=== PATIENT | female | born 1965 | race Caucasian/White ===

== ENCOUNTER 2016-10-09 00:45 | Emergency (ER) | payer OTHER ==
[~2016-10-09] VITALS: Wt 65.0 kg
[~2016-10-09 00:45] MED LIST: ATEN50TA PO; CLON2TAB3 PO; FAMO40TA52 PO; FLUO10CA17 PO; GABA300C16 PO; HYDR-906 PO; IBUP400T22 PO; LORA1TAB PO; NAPR-260 PO; OMEP20CA16 PO; TOPI50TA5 PO; TRAM50TA2 PO
[2016-10-09 00:50] VITALS: Wt 65.0 kg
[2016-10-09] MEDS ORDERED: LORAZEPAM 2 MG INJ IV ONE (03:30)
[2016-10-09 03:52] LABS: ADD SCAN DIFF NO
[2016-10-09 04:00] LABS: BASOPHILS % 0.5 % (0.0-2.0); EOSINOPHILS # 0.1 10^3/ul (0.0-0.5); EOSINOPHILS % 1.7 % (0.0-7.0); HEMOGLOBIN 12.2 g/dl (12.0-16.0); LYMPHOCYTES # 1.1 10^3/ul (0.8-2.9); LYMPHOCYTES % 19.2 % (15.0-51.0); MEAN CORPUSCULAR HEMOGLOBIN 29.9 pg (29.0-33.0); MEAN CORPUSCULAR VOLUME 90.7 fl (82.0-101.0); MEAN PLATELET VOLUME 11.1 fl (7.4-10.4); MONOCYTE # 0.4 10^3/ul (0.3-0.9); MONOCYTES % 7.5 % (0.0-11.0); NEUTROPHIL # 4.1 10^3/ul (1.6-7.5); NEUTROPHILS % 70.9 % (39.0-77.0); PLATELET COUNT 243 10^3/UL (140-415); RED BLOOD COUNT 4.08 10^6/ul (4.20-5.40); RED CELL DISTRIBUTION WIDTH 13.8 % (11.5-14.5); WHITE BLOOD COUNT 5.7 10^3/ul (4.8-10.8)
[2016-10-09 04:05] LABS: INR 0.92; PROTIME 12.4 Sec (12.2-14.2)
[2016-10-09 04:09] LABS: ALBUMIN 4.6 g/dl (3.3-4.9); CHLORIDE 106 mmol/L (97-110); POTASSIUM 3.8 mmol/L (3.5-5.1); SODIUM 147 mmol/L (135-144)
--- NOTE | 2016-10-09 04:09 | RADRPT ---
PROCEDURE: CT Brain without contrast. CLINICAL INDICATION: Weakness TECHNIQUE: Axial images from the skull base through the vertex without IV contrast. Multiplanar r eformatted images were made. Images were reviewed on a PACS workstation. The CTDIvol is 44.58 mGy and the DLP is 720.23 mGycm. One or more of the following dose reduction techniques were used: auto mated exposure control, adjustment of the mA and/or kV according to patient size, or use of iterativ e reconstruction technique. COMPARISON: 05/16/2016 FINDINGS: Again seen are changes from prior right frontal craniotomy and artifact from aneurysm clip in the ri ght suprasellar region is again seen. Area of encephalomalacia in the right parietal lobe and mild dilatation of the right lateral ventricle are stable findings. Right cerebellar encephalomalacia is again seen. Areas of encephalomalacia in the right frontal and temporal lobes are unchanged. Ther e is no definite evidence for acute territorial infarction or intracranial hemorrhage. No mass or m idline shift is seen. No extraaxial fluid collection is seen. The visualized paranasal sinuses and mastoids are clear. IMPRESSION:. Stable changes from prior right frontal craniotomy and aneurysm clipping with areas of old encephalomalacia in the right cerebral hemisphere and cerebellum. No definite acute intracranial abnormality. RPTAT: [facility] Physician Kaylen Date Time Electronically viewed and signed by Physician Kaylen on 10/09/2016 04:09 LE/
[2016-10-09 04:11] LABS: CREATININE 0.67 mg/dl (0.44-1.00); PARTIAL THROMBOPLASTIN TIME 29.3 Sec (25.0-35.0)
[2016-10-09 04:12] LABS: ALANINE AMINOTRANSFERASE 16 IU/L (13-69); ALBUMIN/GLOBULIN RATIO 1.53; ALKALINE PHOSPHATASE 70 IU/L (42-121); ANION GAP 17 (8-16); ASPARTATE AMINO TRANSFERASE 16 IU/L (15-46); BILIRUBIN,INDIRECT 0.1 mg/dl (0-1.1); BILIRUBIN,TOTAL 0.1 mg/dl (0.2-1.3); BLOOD UREA NITROGEN 16 mg/dl (7-20); CALCIUM 9.3 mg/dl (8.4-10.2); CARBON DIOXIDE 28 mmol/L (21-31); GLUCOSE 104 mg/dl (70-220); TOTAL PROTEIN 7.6 g/dl (6.1-8.1)
[2016-10-09 04:20] LABS: B-TYPE NATRIURETIC PEPTIDE 39 PG/ML (0-125)
--- NOTE | 2016-10-09 04:21 | RADRPT ---
PROCEDURE: XR Chest. CLINICAL INDICATION: Chest Pain. TECHNIQUE: Portable single view of the chest COMPARISON: 09/30/2015 FINDINGS: The heart size is again top normal or minimally enlarged. No definite acute infiltrate, pleural eff usion, or overt congestive heart failure is seen. No bony abnormality is seen. Calcified granuloma s of the left lower lobe again seen. IMPRESSION: No significant interval change. Prior granulomatous disease. No definite acute disease. Possible m ild cardiomegaly. RPTAT: [facility] Amberly Clark Physician Date Time Electronically viewed and signed by Amberly Clark, Physician on 10/09/2016 04:21 LE/
[2016-10-09 04:28] LABS: TROPONIN-I < 0.012 ng/ml (0.00-0.12)
--- NOTE | 2016-10-09 04:28 | ERD ---
ER Documentation Chief Complaint Date/Time DATE: 10/09/16 TIME: 04:24 Chief Complaint anxiety, begum, dizzy, fell from feeling weak, no ko HPI This is a 51-year-old female complains of anxiety and headache. Denies any fevers or chills. Denies any other current complaints. Patient feels very weak because of her anxiety. She is requesting anxiety medication. ROS All systems reviewed and are negative except as per history of present illness. Medications Home Meds Active Scripts Ibuprofen* (Motrin*) 400 Mg Tab, 400 MG PO Q6H Y for PAIN AND OR ELEVATED TEMP, #30 TAB Prov:DENISSE WILLETT [employer] 06/14/16 Hydrocodone/Acetaminophen ([place] 5-325 Tablet) 1 Each Tablet, 1 TAB PO Q6H Y for SEVERE PAIN LEVEL 7-10, #20 TAB Prov:DENISSE WILLETT NP 06/14/16 Naproxen* (Naprosyn*) 500 Mg Tablet, 500 MG PO BID Y for PAIN AND/OR INFLAMMATION, #30 TAB Prov:LYNDON BYERS MD 05/12/16 Lorazepam* (Lorazepam*) 1 Mg Tablet, 1 MG PO Q8, #5 TAB Prov:DENISSE WILLETT NP 11/25/15 Famotidine* (Famotidine*) 40 Mg Tablet, 40 MG PO DAILY, #30 TAB Prov:LYNDON BYERS MD 09/30/15 Reported Medications Clonazepam* (Clonazepam*) 2 Mg Tablet, 2 MG PO DAILY, TAB 09/30/15 Fluoxetine Hcl* (Fluoxetine Hcl*) 10 Mg Capsule, 10 MG PO DAILY, CAP 09/30/15 Atenolol* (Atenolol*) 50 Mg Tablet, 50 MG PO DAILY, #30 TAB 09/30/15 Omeprazole* (Omeprazole*) 20 Mg Capsule.dr, 20 MG PO DAILY, #30 CAP 09/30/15 Gabapentin* (Gabapentin*) 300 Mg Capsule, 300 MG PO BID, #60 CAP 09/30/15 Topiramate* (Topiramate*) 50 Mg Tablet, 50 MG PO DAILY, TAB 09/16/14 Tramadol HCl (Tramadol HCl) 50 Mg Tab, 50 MG PO BID Y for PAIN, TAB 09/16/14 Allergies Allergies: Coded Allergies: No Known Allergy (Unverified , 06/14/16) PMhx/Soc History of Surgery: Yes (cranial surgery for aneurysm repair) Anesthesia Reaction: No Hx Neurological Disorder: No Hx Respiratory Disorders: Yes (asthma) Hx Psychiatric Problems: No Hx Miscellaneous Medical Probl: Yes (hypothyroid pretension) Hx Alcohol Use: No Hx Substance Use: No Hx Tobacco Use: No Smoking Status: Never smoker Physical Exam Vitals Vital Signs Date Time Temp Pulse Resp B/P Pulse Ox O2 Delivery O2 Flow Rate FiO2 10/09/16 00:50 98.6 69 20 116/73 100 Physical Exam Const: [] Head: Atraumatic Eyes: Normal Conjunctiva ENT: Normal External Ears, Nose and Mouth. Neck: Full range of motion..~ No meningismus. Resp: Clear to auscultation bilaterally Cardio: Regular rate and rhythm, no murmurs Abd: Soft, non tender, non distended. Normal bowel sounds Skin: No petechiae or rashes Back: No midline or flank tenderness Ext: No cyanosis, or edema Neur: Awake and alert Psych: Normal Mood and Affect Result Diagram: 10/09/16 03310/09/16 0330 Results 24 hrs Laboratory Tests Test 10/09/16 03:30 Activated Partial Thromboplast Time 29.3Sec Alanine Aminotransferase (ALT/SGPT) 16IU/L Albumin 4.6g/dl Albumin/Globulin Ratio 1.53 Alkaline Phosphatase 70IU/L Anion Gap 17 Aspartate Amino Transf (AST/SGOT) 16IU/L B-Type Natriuretic Peptide 39PG/ML Basophils # 0.010^3/ul Basophils % 0.5% Blood Urea Nitrogen 16mg/dl Calcium Level 9.3mg/dl Carbon Dioxide Level 28mmol/L Chloride Level 106mmol/L Creatinine 0.67mg/dl Direct Bilirubin 0.00mg/dl Eosinophils # 0.110^3/ul Eosinophils % 1.7% Globulin 3.00g/dl Glucose Level 104mg/dl Hematocrit 37.0% Hemoglobin 12.2g/dl INR International Normalized Ratio 0.92 Indirect Bilirubin 0.1mg/dl Lymphocytes # 1.110^3/ul Lymphocytes % 19.2% Mean Corpuscular Hemoglobin 29.9pg Mean Corpuscular Hemoglobin Concent 33.0g/dl Mean Corpuscular Volume 90.7fl Mean Platelet Volume 11.1fl Monocytes # 0.410^3/ul Monocytes % 7.5% Neutrophils # 4.110^3/ul Neutrophils % 70.9% Nucleated Red Blood Cells # 0.010^3/ul Nucleated Red Blood Cells % 0.0/100WBC Platelet Count 36228^3/UL Potassium Level 3.8mmol/L Prothrombin Time 12.4Sec Prothrombin Time Ratio 1.0 Red Blood Count 4.0810^6/ul Red Cell Distribution Width 13.8% Sodium Level 147mmol/L Total Bilirubin 0.1mg/dl Total Protein 7.6g/dl Troponin I Pending White Blood Count 5.710^3/ul Current Medications Medications (Trade) Dose Ordered Sig/Larry Route PRN Reason Start Time Stop Time Status Last Admin Dose Admin Lorazepam (Ativan) 1 mg ONCE ONCE IV 10/09/16 03:30 10/09/16 03:31 DC 10/09/16 03:37 Procedures/MDM EKG: Rate/Rhythm: [Normal Sinus Rhythm] QRS, ST, T-waves: [No changes consistent w/ acute ischemia] Impression: [No evidence of ischemia or arrhythmia] Chest X-ray 1V Interpreted by me: Soft Tissue: No acute abnormalities Bones: No acute abnormalities Mediastinum/Cardiac Silhouette/Lungs: [No acute abnormalities] CT of the head is negative for any acute pathology Medical decision-making: This is a 51-year-old female comes in with symptomology consistent with anxiety. At this point is clinically stable. She will be discharged home. Return for worsening symptoms. Departure Diagnosis: Primary Impression: Anxiety attack Condition: Stable KRYSTYNA BOOTH Oct 09, 2016 04:28
[2016-10-09] MEDS ORDERED: LORA1TAB PO (04:34)
[2016-10-09 05:09] VITALS: BP 108/76; PULSE 88; RESP 20; TEMP 98.6
== END 2016-10-09 05:09 | disposition home or self-care (01) ==
LOC: E/R 00:45
DX: F41.9 Anxiety disorder, unspecified (principal); J45.909 Unspecified asthma, uncomplicated; E03.9 Hypothyroidism, unspecified; R07.9 Chest pain, unspecified; R51 Headache; I10 Essential (primary) hypertension
CPT/HCPCS: 36415; 70450; 71010; 80053; 83880; 84484; 85025; 85610; 85730; 93005; 96374; J2060; Z7502

== ENCOUNTER 2016-10-31 02:39 | Emergency (ER) | payer OTHER ==
[~2016-10-31] VITALS: Ht 152.4 cm; Wt 64.5 kg
[2016-10-31 02:43] VITALS: Ht 152.4 cm; Wt 64.5 kg
[2016-10-31] MEDS ORDERED: IBUPROFEN 600 MG TAB PO ONE (06:30)
[2016-10-31] MEDS ORDERED: LORAZEPAM 2 MG INJ IV ONE (07:00)
[2016-10-31] MEDS ORDERED: LORAZEPAM 2 MG INJ IM ONE (07:00)
--- NOTE | 2016-10-31 07:11 | RADRPT ---
PROCEDURE: Chest. CLINICAL INDICATION: Chest pain. TECHNIQUE: Single frontal view of the chest was obtained. COMPARISON: 10/09/2016. FINDINGS: The cardiac silhouette is magnified. The aortic arch is unremarkable. There is no focal consolidat ion, vascular congestion or pleural effusion. There is no pneumothorax. IMPRESSION: No evidence for active cardiopulmonary disease. .Shon Bennett MD, MD Date Time Electronically viewed and signed by .Shon Bennett MD, on 10/31/2016 07:11 .T/
[2016-10-31 07:25] LABS: ADD SCAN DIFF NO
[2016-10-31 07:43] LABS: ALBUMIN 4.5 g/dl (3.3-4.9); ALBUMIN/GLOBULIN RATIO 1.5; BILIRUBIN,INDIRECT 0.4 mg/dl (0-1.1); BILIRUBIN,TOTAL 0.4 mg/dl (0.2-1.3); CALCIUM 9.3 mg/dl (8.4-10.2); CREATININE 0.54 mg/dl (0.44-1.00); POTASSIUM 3.8 mmol/L (3.5-5.1); TOTAL PROTEIN 7.5 g/dl (6.1-8.1)
--- NOTE | 2016-10-31 07:43 | RADRPT ---
PROCEDURE: US Abdomen (right upper quadrant). CLINICAL INDICATION: Abdominal pain. TECHNIQUE: Multiple real-time longitudinal and transverse images of the right upper quadrant of th e abdomen were acquired utilizing a curved array transducer. Images were reviewed on a high-resoluti on PACS workstation. COMPARISON: None FINDINGS: The liver is normal in size and demonstrates normal echogenicity. No focal intrahepatic mass is id entified. The gallbladder is normal in appearance. There is no pericholecystic fluid or gallbladde r wall thickening. No intra or extrahepatic biliary dilatation is seen. The common bile duct measur es 3.1 mm in maximal dimension. The portal and hepatic veins are patent demonstrating normal directi onal flow. The visualized portions of the pancreas are unremarkable with obscuration of the tail of the pancreas. No free fluid is identified. The right kidney measures 11.0 cm in length. There is normal echogenicity within the right kidney. There is no perinephric fluid collection. No hydronephrosis, mass, or calculus is seen. IMPRESSION: 1. Unremarkable right upper quadrant ultrasound. RPTAT: .Rose Morocho MD, Date Time Electronically viewed and signed by .Rose Morocho MD, on 10/31/2016 07:42 .G/
[2016-10-31 07:46] LABS: ADD UMIC NO; URINE BILIRUBIN (Dip) NEGATIVE (NEGATIVE); URINE BLOOD (Dip) NEGATIVE (NEGATIVE); URINE COLOR LT. YELLOW (YELLOW); URINE GLUCOSE (Dip) NEGATIVE (NEGATIVE); URINE KETONES (Dip) NEGATIVE (NEGATIVE); URINE LEUKOCYTE ESTERASE (Dip) NEGATIVE (NEGATIVE); URINE NITRITE (Dip) NEGATIVE (NEGATIVE); URINE TOTAL PROTEIN (Dip) NEGATIVE (NEGATIVE); URINE UROBILINOGEN (Dip) 0.2 E.U./dL (0.1-1.0)
--- NOTE | 2016-10-31 08:14 | RADRPT ---
PROCEDURE: US Pelvis CLINICAL INDICATION: Pelvic pain TECHNIQUE: Transabdominal and transvaginal sonographic evaluation of the pelvis was performed. COMPARISON: None. FINDINGS: Myometrium is heterogeneous in echotexture without fibroids. Endometrium is not well visualized. The ovaries are not visualized. MEASUREMENTS: Uterus: 5.8 x 3.6 x 4.6 cm, anteverted IMPRESSION: Ovaries not visualized. Heterogeneous uterus with poorly visualized endometrium. RPTAT:PP .Jourdan Rahman MD, Date Time Electronically viewed and signed by .Jourdan Rahman MD, on 10/31/2016 08:13 .V/
[2016-10-31] MEDS ORDERED: IBUP-1542 PO (08:23)
[2016-10-31] MEDS ORDERED: LORA1TAB PO (08:23)
[2016-10-31 08:59] LABS: BASOPHILS % 0.5 % (0.0-2.0); EOSINOPHILS # 0.1 10^3/ul (0.0-0.5); EOSINOPHILS % 1.7 % (0.0-7.0); HEMATOCRIT 36.7 % (37.0-47.0); HEMOGLOBIN 12.1 g/dl (12.0-16.0); LYMPHOCYTES # 1.7 10^3/ul (0.8-2.9); MEAN CORPUSCULAR HEMOGLOBIN 30.2 pg (29.0-33.0); MEAN CORPUSCULAR VOLUME 91.5 fl (82.0-101.0); MEAN PLATELET VOLUME 11.4 fl (7.4-10.4); MONOCYTE # 0.4 10^3/ul (0.3-0.9); MONOCYTES % 6.5 % (0.0-11.0); NEUTROPHIL # 4.1 10^3/ul (1.6-7.5); NEUTROPHILS % 64.1 % (39.0-77.0); PLATELET COUNT 228 10^3/UL (140-415); RED BLOOD COUNT 4.01 10^6/ul (4.20-5.40); RED CELL DISTRIBUTION WIDTH 13.7 % (11.5-14.5); WHITE BLOOD COUNT 6.5 10^3/ul (4.8-10.8)
--- NOTE | 2016-10-31 11:34 | ERD ---
ER Documentation Chief Complaint Date/Time DATE: 10/31/16 TIME: Chief Complaint med refill for lorazepam, patient feels anxious HPI This is a 51-year-old female presenting to the emergency room with anxiety, right-sided chest pain, abdominal pain for 2 days associated with dysuria for 3 days. Patient states that she ran out of Lorazepam at home. Denies any recent history of fevers, cough, shortness of breath, dizziness, nausea, vomiting or diarrhea. Patient is currently taking Topamax at home. Denies any medical or surgical history. No sick contacts or recent travel. Patient denies smoking or alcohol use. ROS All systems reviewed and are negative except as per history of present illness. Medications Home Meds Active Scripts Ibuprofen* (Motrin*) 600 Mg Tab, 600 MG PO Q6H Y for PAIN AND OR ELEVATED TEMP, #30 TAB Prov:JAMES PANDA 10/31/16 Lorazepam* (Lorazepam*) 1 Mg Tablet, 1 MG PO Q8H Y for ANXIETY, #10 TAB Prov:JAMES PANDA 10/31/16 Lorazepam* (Lorazepam*) 1 Mg Tablet, 1 MG PO Q8H Y for ANXIETY, #10 TAB Prov:KRYSTYNA BOOTH 10/09/16 Ibuprofen* (Motrin*) 400 Mg Tab, 400 MG PO Q6H Y for PAIN AND OR ELEVATED TEMP, #30 TAB Prov:DENISSE WILLETT NP 06/14/16 Hydrocodone/Acetaminophen ([place] 5-325 Tablet) 1 Each Tablet, 1 TAB PO Q6H Y for SEVERE PAIN LEVEL 7-10, #20 TAB Prov:DENISSE WILLETT NP 06/14/16 Naproxen* (Naprosyn*) 500 Mg Tablet, 500 MG PO BID Y for PAIN AND/OR INFLAMMATION, #30 TAB Prov:LYNDON BYERS MD 05/12/16 Lorazepam* (Lorazepam*) 1 Mg Tablet, 1 MG PO Q8, #5 TAB Prov:DENISSE WLILETT NP 11/25/15 Famotidine* (Famotidine*) 40 Mg Tablet, 40 MG PO DAILY, #30 TAB Prov:LYNDON BYERS MD 09/30/15 Reported Medications Clonazepam* (Clonazepam*) 2 Mg Tablet, 2 MG PO DAILY, TAB 09/30/15 Fluoxetine Hcl* (Fluoxetine Hcl*) 10 Mg Capsule, 10 MG PO DAILY, CAP 09/30/15 Atenolol* (Atenolol*) 50 Mg Tablet, 50 MG PO DAILY, #30 TAB 09/30/15 Omeprazole* (Omeprazole*) 20 Mg Capsule.dr, 20 MG PO DAILY, #30 CAP 09/30/15 Gabapentin* (Gabapentin*) 300 Mg Capsule, 300 MG PO BID, #60 CAP 09/30/15 Topiramate* (Topiramate*) 50 Mg Tablet, 50 MG PO DAILY, TAB 09/16/14 Tramadol HCl (Tramadol HCl) 50 Mg Tab, 50 MG PO BID Y for PAIN, TAB 09/16/14 Allergies Allergies: Coded Allergies: No Known Allergy (Unverified , 06/14/16) PMhx/Soc History of Surgery: Yes (cranial surgery for aneurysm repair) Anesthesia Reaction: No Hx Neurological Disorder: No Hx Respiratory Disorders: Yes (asthma) Hx Psychiatric Problems: No Hx Miscellaneous Medical Probl: Yes (hypothyroid pretension) Hx Alcohol Use: No Hx Substance Use: No Hx Tobacco Use: No Smoking Status: Never smoker Physical Exam Vitals Vital Signs Date Time Temp Pulse Resp B/P Pulse Ox O2 Delivery O2 Flow Rate FiO2 10/31/16 02:43 97.0 81 18 145/75 100 Physical Exam Physical Exam CONST: Well-developed, well-nourished, in no acute distress. Nontoxic in appearance. HEENT: Atraumatic. Normal conjunctiva. EOM intact. TM intact. External ear is normal. Clear oropharnyx without erythema. No uvular deviation. Moist mucous membranes. Supple neck. No meningismus. No submandibular induration. RESP: Clear to auscultation bilaterally. No wheezing. CARDIO: Regular rate and rhythm, no murmurs. ABD: Tenderness on the lower abdominal area. Soft, non distended. Normal bowel sounds. No McBurney's point tenderness. No guarding or rigidity. No peritoneal signs. SKIN: No petechiae or rashes. BACK: No midline or flank tenderness. EXT: No cyanosis or edema. Distal pulses equal and bilateral. NEURO: Awake and alert, appropriate for age. Result Diagram: 10/31/16 0832 10/31/16 0703 Results 24 hrs Laboratory Tests Test 10/31/16 07:03 10/31/16 07:07 10/31/16 08:32 Sodium Level 144mmol/L Potassium Level 3.8mmol/L Chloride Level 112mmol/L Carbon Dioxide Level 23mmol/L Anion Gap 13 Blood Urea Nitrogen 11mg/dl Creatinine 0.54mg/dl Glucose Level 103mg/dl Calcium Level 9.3mg/dl Total Bilirubin 0.4mg/dl Direct Bilirubin 0.00mg/dl Indirect Bilirubin 0.4mg/dl Aspartate Amino Transf (AST/SGOT) 17IU/L Alanine Aminotransferase (ALT/SGPT) 19IU/L Alkaline Phosphatase 73IU/L Total Protein 7.5g/dl Albumin 4.5g/dl Globulin 3.00g/dl Albumin/Globulin Ratio 1.50 Lipase 118U/L Urine Color LT. YELLOW Urine Clarity CLEAR Urine pH 7.0 Urine Specific Latta 1.010 Urine Ketones NEGATIVE Urine Nitrite NEGATIVE Urine Bilirubin NEGATIVE Urine Urobilinogen 0.2 E.U./dL Urine Leukocyte Esterase NEGATIVE Urine Hemoglobin NEGATIVE Urine Glucose NEGATIVE% Urine Total Protein NEGATIVE White Blood Count 6.510^3/ul Red Blood Count 4.0110^6/ul Hemoglobin 12.1g/dl Hematocrit 36.7% Mean Corpuscular Volume 91.5fl Mean Corpuscular Hemoglobin 30.2pg Mean Corpuscular Hemoglobin Concent 33.0g/dl Red Cell Distribution Width 13.7% Platelet Count 11119^3/UL Mean Platelet Volume 11.4fl Neutrophils % 64.1% Lymphocytes % 27.0% Monocytes % 6.5% Eosinophils % 1.7% Basophils % 0.5% Nucleated Red Blood Cells % 0.0/100WBC Neutrophils # 4.110^3/ul Lymphocytes # 1.710^3/ul Monocytes # 0.410^3/ul Eosinophils # 0.110^3/ul Basophils # 0.010^3/ul Nucleated Red Blood Cells # 0.010^3/ul Current Medications Medications (Trade) Dose Ordered Sig/Larry Route PRN Reason Start Time Stop Time Status Last Admin Dose Admin Ibuprofen (Motrin) 600 mg ONCE ONCE PO 10/31/16 06:30 10/31/16 06:33 DC 10/31/16 06:42 Lorazepam (Ativan) 1 mg ONCE ONCE IV 10/31/16 07:00 10/31/16 07:00 DC 10/31/16 06:42 Lorazepam (Ativan) 1 mg ONCE ONCE IM 10/31/16 07:00 10/31/16 07:01 DC 10/31/16 06:57 Patient: IVONNE SANTOS : 1965 Age: 51 Sex: F MR #: [id number] DOS: 10/31/16 0633 Ordering MD: JAMES PANDA NP Location: [facility] Room/Bed: PROCEDURE: Chest. CLINICAL INDICATION: Chest pain. TECHNIQUE: Single frontal view of the chest was obtained. COMPARISON: 10/09/2016. FINDINGS: The cardiac silhouette is magnified. The aortic arch is unremarkable. There is no focal consolidation, vascular congestion or pleural effusion. There is no pneumothorax. IMPRESSION: No evidence for active cardiopulmonary disease. .Shon Benentt MD, MD Date Time Electronically viewed and signed by .Shon Bennett MD, on 10/31/2016 07:11 PROCEDURE: US Abdomen (right upper quadrant). CLINICAL INDICATION: Abdominal pain. TECHNIQUE: Multiple real-time longitudinal and transverse images of the right upper quadrant of the abdomen were acquired utilizing a curved array transducer. Images were reviewed on a high-resolution PACS workstation. COMPARISON: None FINDINGS: The liver is normal in size and demonstrates normal echogenicity. No focal intrahepatic mass is identified. The gallbladder is normal in appearance. There is no pericholecystic fluid or gallbladder wall thickening. No intra or extrahepatic biliary dilatation is seen. The common bile duct measures 3.1 mm in maximal dimension. The portal and hepatic veins are patent demonstrating normal directional flow. The visualized portions of the pancreas are unremarkable with obscuration of the tail of the pancreas. No free fluid is identified. The right kidney measures 11.0 cm in length. There is normal echogenicity within the right kidney. There is no perinephric fluid collection. No hydronephrosis, mass, or calculus is seen. IMPRESSION: 1. Unremarkable right upper quadrant ultrasound. RPTAT: HH .Rose Morocho MD, Date Time Electronically viewed and signed by .Rose Morocho MD, MD on 10/31/2016 07 :42 PROCEDURE: US Pelvis CLINICAL INDICATION: Pelvic pain TECHNIQUE: Transabdominal and transvaginal sonographic evaluation of the pelvis was performed. COMPARISON: None. FINDINGS: Myometrium is heterogeneous in echotexture without fibroids. Endometrium is not well visualized. The ovaries are not visualized. MEASUREMENTS: Uterus: 5.8 x 3.6 x 4.6 cm, anteverted IMPRESSION: Ovaries not visualized. Heterogeneous uterus with poorly visualized endometrium. RPTAT:PP .Jourdan Rahman MD, MD Date Time Electronically viewed and signed by .Jourdan Rahman MD, MD on 10/31/2016 08:13 Procedures/[facility] EMERGENCY DEPARTMENT COURSE/MEDICAL DECISION MAKING This is a 51-year-old female with comes to the emergency room with multiple complaints, namely anxiety, shortness of breath, right-sided chest pain , lower abdominal pain and dysuria for 3 days. The patient was given Lorazepam and Motrin in the department. On re-evaluation, the patient's symptoms improved. Lab results reviewed and showed no significant acute abnormalities. Chest x-ray, ultrasound of the abdomen and pelvis were done and interpreted by a radiologist. Results are unremarkable. EKG read by Dr. Taylor: Rate/Rhythm: Sinus bradycardia at a rate of 56 Intervals: Normal Impression: No evidence of ischemia or arrhythmia Given the laboratory and diagnostic results, I believe the patient's cardiac and abdominal symptoms are related to her anxiety. My primary diagnosis is anxiety. Secondary diagnosis abdominal pain and chest pain Differential diagnoses considered but not limited to AL, CVA, acute appendicitis , diverticulitis, pancreatitis, cholecystitis, gastritis, pyelonephritis, UTI, constipation, inflammatory bowel disease, ectopic , ovarian torsion. Pt is hemodynamically stable upon reassessment. The patient was discharged for outpatient management with a prescription for lorazepam and ibuprofen. The patient was advised to followup with their PMD in 1 -2 days and to return to the Emergency Department if there are any new or worsening symptoms. The patient understood and agreed with the diagnosis, treatment and plan. Patient is stable for discharge at this time. Departure Diagnosis: Primary Impression: Anxiety Additional Impressions: Abdominal pain Abdominal location: lower abdomen, unspecified Qualified Code: R10.30 - Lower abdominal pain Chest pain Chest pain type: unspecified Qualified Code: R07.9 - Chest pain, unspecified type Condition: Stable Patient Instructions: Abdominal Pain, Your Body's Response to Anxiety, Chest Pain, Uncertain Cause Referrals: [facility] YOU HAVE RECEIVED A MEDICAL SCREENING EXAM AND THE RESULTS INDICATE THAT YOU DO NOT HAVE A CONDITION THAT REQUIRES URGENT TREATMENT IN THE EMERGENCY DEPARTMENT. FURTHER EVALUATION AND TREATMENT OF YOUR CONDITION CAN WAIT UNTIL YOU ARE SEEN IN YOUR DOCTORS OFFICE WITHIN THE NEXT 1-2 DAYS. IT IS YOUR RESPONSIBILITY TO MAKE AN APPOINTMENT FOR FOLOW-UP CARE. IF YOU HAVE A PRIMARY DOCTOR --you should call your primary doctor and schedule an appointment IF YOU DO NOT HAVE A PRIMARY DOCTOR YOU CAN CALL OUR PHYSICIAN REFERRAL HOTLINE AT IF YOU CAN NOT AFFORD TO SEE A PHYSICIAN YOU CAN CHOSE FROM THE FOLLOWING [facility] [address] [facility] [facility] [address] [facility]. [facility] [address] [facility] [facility] [address] [facility] [facility] [address] [facility]. [facility]. [address] [facility]. [facility] YOU HAVE RECEIVED A MEDICAL SCREENING EXAM AND THE RESULTS INDICATE THAT YOU DO NOT HAVE A CONDITION THAT REQUIRES URGENT TREATMENT IN THE EMERGENCY DEPARTMENT. FURTHER EVALUATION AND TREATMENT OF YOUR CONDITION CAN WAIT UNTIL YOU ARE SEEN IN YOUR DOCTORS OFFICE WITHIN THE NEXT 1-2 DAYS. IT IS YOUR RESPONSIBILITY TO MAKE AN APPOINTMENT FOR FOLOW-UP CARE. IF YOU HAVE A PRIMARY DOCTOR --you should call your primary doctor and schedule and appointment IF YOU DO NOT HAVE A PRIMARY DOCTOR YOU CAN CALL OUR PHYSICIAN REFERRAL HOTLINE AT . IF YOU CAN NOT AFFORD TO SEE A PHYSICIAN YOU CAN CHOSE FROM THE FOLLOWING [facility] INSTITUTIONS: [facility] [address] [place] [address] [facility] [address] [place] [address] [facility] + [facility] [address] [place] [address] Additional Instructions: Llame a melara mdico de atencin primaria maana para hacer kaleb delgado obdulia los pr ximos woody 1-2. Volver al Departamento de la emergencia inmediatamente si tiene cualquier s ntoma nuevo o que empeora. Nile todos los medicamentos rhonda lo indique. JAMES PANDA Oct 31, 2016 11:34
== END 2016-10-31 09:25 | disposition home or self-care (01) ==
LOC: FTE 02:39
DX: F41.9 Anxiety disorder, unspecified (principal); R10.30 Lower abdominal pain, unspecified; R07.9 Chest pain, unspecified; J45.909 Unspecified asthma, uncomplicated; E03.9 Hypothyroidism, unspecified; I10 Essential (primary) hypertension
CPT/HCPCS: 36415; 71010; 76705; 76830; 76856; 80053; 81003; 83690; 85025; 93005; 96372; 96374; J2060; Z7502; Z7610

== ENCOUNTER 2016-12-23 04:28 | Emergency (ER) | payer OTHER ==
[~2016-12-23] VITALS: Ht 157.5 cm; Wt 66.5 kg
[~2016-12-23 04:28] MED LIST changes: +IBUP-1542 PO
[2016-12-23 04:37] VITALS: Ht 157.5 cm; Wt 66.5 kg
[2016-12-23] MEDS ORDERED: GABA300C16 PO (05:15)
[2016-12-23] MEDS ORDERED: TOPI-25 PO (05:15)
[2016-12-23] MEDS ORDERED: ALBU18HF INHALATION (05:16)
[2016-12-23] MEDS ORDERED: LEVO25TA53 PO (05:19)
[2016-12-23 05:45] LABS: ADD SCAN DIFF NO
[2016-12-23 05:46] LABS: BASOPHILS % 0.4 % (0.0-2.0); EOSINOPHILS # 0.1 10^3/ul (0.0-0.5); EOSINOPHILS % 1.1 % (0.0-7.0); HEMATOCRIT 33.7 % (37.0-47.0); HEMOGLOBIN 11.5 g/dl (12.0-16.0); LYMPHOCYTES # 1.9 10^3/ul (0.8-2.9); LYMPHOCYTES % 24.9 % (15.0-51.0); MEAN CORPUSCULAR HEMOGLOBIN 30.1 pg (29.0-33.0); MEAN CORPUSCULAR HGB CONC 34.1 g/dl (32.0-37.0); MEAN CORPUSCULAR VOLUME 88.2 fl (82.0-101.0); MEAN PLATELET VOLUME 10.5 fl (7.4-10.4); MONOCYTE # 0.4 10^3/ul (0.3-0.9); MONOCYTES % 5.9 % (0.0-11.0); NEUTROPHILS % 67.3 % (39.0-77.0); PLATELET COUNT 295 10^3/UL (140-415); RED BLOOD COUNT 3.82 10^6/ul (4.20-5.40); WHITE BLOOD COUNT 7.4 10^3/ul (4.8-10.8)
[2016-12-23 06:01] LABS: INR 0.95; PROTIME 12.7 Sec (12.2-14.2)
[2016-12-23 06:02] LABS: PARTIAL THROMBOPLASTIN TIME 30.4 Sec (25.0-35.0)
[2016-12-23 06:06] LABS: ANION GAP 17 (8-16); BLOOD UREA NITROGEN 8 mg/dl (7-20); CARBON DIOXIDE 28 mmol/L (21-31); CHLORIDE 104 mmol/L (97-110); CREATININE 0.67 mg/dl (0.44-1.00); GLUCOSE 95 mg/dl (70-220); POTASSIUM 3.8 mmol/L (3.5-5.1); SODIUM 145 mmol/L (135-144)
[2016-12-23 06:31] LABS: TROPONIN-I < 0.012 ng/ml (0.00-0.12)
--- NOTE | 2016-12-23 06:35 | RADRPT ---
PROCEDURE: Chest. CLINICAL INDICATION: Chest pain. TECHNIQUE: Single frontal view of the chest was obtained. COMPARISON: 10/09/2016. FINDINGS: The cardiac silhouette is magnified. The aortic arch is unremarkable. There is no focal consolidat ion, vascular congestion or pleural effusion. There is no pneumothorax. IMPRESSION: No evidence for active cardiopulmonary disease. .Shon Bennett MD, Date Time Electronically viewed and signed by .Shon Bennett MD, on 12/23/2016 06:34 .T/
[2016-12-23] MEDS ORDERED: ACETAMINOPHEN 500 MG TAB PO STA (06:47)
[2016-12-23] MEDS ORDERED: ALBUTEROL 0.5% (NEB) 2.5 MG/0.5 ML AMP NEB STA (06:53)
[2016-12-23] MEDS ORDERED: METHYLPREDNISOLONE 125 MG INJ IV STA (06:53)
[2016-12-23] MEDS ORDERED: IPRATROPIUM (NEB) 0.5 MG/2.5 ML AMP NEB STA (06:53)
--- NOTE | 2016-12-23 06:58 | ERD ---
ER Documentation Chief Complaint Date/Time DATE: 12/23/16 TIME: 06:56 Chief Complaint CHEST TIGHTNESS, CHILLS, DIZZY, DENIES N/V HPI This is a 61-year-old female presents to the emergency room for evaluation of chest tightness and mild shortness of breath. The patient does say she has a history of asthma and states that she does have an inhaler however she did not use it. The patient denies any palpitations associated with this. She denies any trauma to the chest and denies any fevers, nausea, vomiting or diaphoresis. She came to the emergency room for further evaluation. ROS All systems reviewed and are negative except as per history of present illness. Medications Home Meds Active Scripts Lorazepam* (Lorazepam*) 1 Mg Tablet, 1 MG PO Q8H Y for ANXIETY, #10 TAB Prov:ROJELIOTEGANKRYSTYNA Maddie 10/09/16 Reported Medications Levothyroxine Sodium* (Levothyroxine Sodium*) 25 Mcg Tablet, 25 MCG PO BEFORE BREAKFAST, #30 TAB 12/23/16 Albuterol Sulfate* (Ventolin HFA*) 18 Gm Hfa.aer.ad, 2 PUFF INHALATION Q4H, #1 INHALER 12/23/16 Topiramate* (Topiramate*) 100 Mg Tablet, 100 MG PO DAILY, TAB 12/23/16 Gabapentin* (Gabapentin*) 300 Mg Capsule, 300 MG PO DAILY, #60 CAP 12/23/16 Fluoxetine Hcl* (Fluoxetine Hcl*) 10 Mg Capsule, 10 MG PO DAILY, CAP 09/30/15 Atenolol* (Atenolol*) 50 Mg Tablet, 50 MG PO DAILY, #30 TAB 09/30/15 Discontinued Reported Medications Clonazepam* (Clonazepam*) 2 Mg Tablet, 2 MG PO DAILY, TAB 09/30/15 Omeprazole* (Omeprazole*) 20 Mg Capsule.dr, 20 MG PO DAILY, #30 CAP 09/30/15 Gabapentin* (Gabapentin*) 300 Mg Capsule, 300 MG PO BID, #60 CAP 09/30/15 Topiramate* (Topiramate*) 50 Mg Tablet, 50 MG PO DAILY, TAB 09/16/14 Tramadol HCl (Tramadol HCl) 50 Mg Tab, 50 MG PO BID Y for PAIN, TAB 09/16/14 Discontinued Scripts Ibuprofen* (Motrin*) 600 Mg Tab, 600 MG PO Q6H Y for PAIN AND OR ELEVATED TEMP, #30 TAB Prov:JAMES PANDA 10/31/16 Lorazepam* (Lorazepam*) 1 Mg Tablet, 1 MG PO Q8H Y for ANXIETY, #10 TAB Prov:JAMES PANDA 10/31/16 Ibuprofen* (Motrin*) 400 Mg Tab, 400 MG PO Q6H Y for PAIN AND OR ELEVATED TEMP, #30 TAB Prov:DENISSE WILLETT NP 06/14/16 Hydrocodone/Acetaminophen ([place] 5-325 Tablet) 1 Each Tablet, 1 TAB PO Q6H Y for SEVERE PAIN LEVEL 7-10, #20 TAB Prov:DENISSE WILLETT NP 06/14/16 Naproxen* (Naprosyn*) 500 Mg Tablet, 500 MG PO BID Y for PAIN AND/OR INFLAMMATION, #30 TAB Prov:LYNDON BYERS MD 05/12/16 Lorazepam* (Lorazepam*) 1 Mg Tablet, 1 MG PO Q8, #5 TAB Prov:DENISSE WILLETT NP 11/25/15 Famotidine* (Famotidine*) 40 Mg Tablet, 40 MG PO DAILY, #30 TAB Prov:LYNDON BYERS MD 09/30/15 Allergies Allergies: Coded Allergies: No Known Allergy (Unverified , 12/23/16) PMhx/Soc History of Surgery: Yes (cranial surgery for aneurysm repair) Anesthesia Reaction: No Hx Neurological Disorder: No Hx Respiratory Disorders: Yes (asthma) Hx Psychiatric Problems: No Hx Miscellaneous Medical Probl: Yes (hypothyroid pretension) Hx Alcohol Use: No Hx Substance Use: No Hx Tobacco Use: No Smoking Status: Never smoker Physical Exam Vitals Vital Signs Date Time Temp Pulse Resp B/P Pulse Ox O2 Delivery O2 Flow Rate FiO2 12/23/16 06:49 60 17 131/82 99 12/23/16 04:37 97.4 70 17 173/97 99 Physical Exam INITIAL VITAL SIGNS: Reviewed by me GENERAL: The patient is well developed and appropriate for usual state of health in no apparent distress HEENT: Pupils equal, round, and reactive to light. EOMI. There is no scleral icterus. NECK: C-spine is soft and supple, there is no meningismus. There is no cervical lymphadenopathy. LUNGS: Clear to auscultation bilaterally. There are no rales, wheezes or rhonchi. HEART: Regular rate and rhythm, no murmurs, clicks, rubs or gallops. ABDOMEN: Soft, non-tender, non-distended. There are bowel sounds in all four quadrants. No rebound or guarding. EXTREMITIES: There is no peripheral cyanosis or edema. No focal swelling or erythema. NEUROLOGICAL: The patient moves all four extremities with 5/5 strength. Cranial nerves II - XII are intact. Normal gait. Alert and oriented SKIN: There is no apparent rash or petechiae. HEME/LYMPHATIC: There is no evidence of excessive bruising or lymphedema. PSYCHIATRIC: The patient does not appear anxious or depressed. Result Diagram: 12/23/1624 12/23/1624 Results 24 hrs Laboratory Tests Test 12/23/16 05:24 White Blood Count 7.410^3/ul Red Blood Count 3.8210^6/ul Hemoglobin 11.5g/dl Hematocrit 33.7% Mean Corpuscular Volume 88.2fl Mean Corpuscular Hemoglobin 30.1pg Mean Corpuscular Hemoglobin Concent 34.1g/dl Red Cell Distribution Width 13.0% Platelet Count 30567^3/UL Mean Platelet Volume 10.5fl Neutrophils % 67.3% Lymphocytes % 24.9% Monocytes % 5.9% Eosinophils % 1.1% Basophils % 0.4% Nucleated Red Blood Cells % 0.0/100WBC Neutrophils # 5.010^3/ul Lymphocytes # 1.910^3/ul Monocytes # 0.410^3/ul Eosinophils # 0.110^3/ul Basophils # 0.010^3/ul Nucleated Red Blood Cells # 0.010^3/ul Prothrombin Time 12.7Sec Prothrombin Time Ratio 1.0 INR International Normalized Ratio 0.95 Activated Partial Thromboplast Time 30.4Sec Sodium Level 145mmol/L Potassium Level 3.8mmol/L Chloride Level 104mmol/L Carbon Dioxide Level 28mmol/L Anion Gap 17 Blood Urea Nitrogen 8mg/dl Creatinine 0.67mg/dl Glucose Level 95mg/dl Calcium Level 10.0mg/dl Troponin I < 0.012ng/ml Current Medications Medications (Trade) Dose Ordered Sig/Larry Route PRN Reason Start Time Stop Time Status Last Admin Dose Admin Acetaminophen (Tylenol Tab) 1,000 mg ONCE STAT PO 12/23/16 06:47 12/23/16 06:48 DC 12/23/16 06:55 Albuterol (Proventil 0.5% (Neb)) 10 mg ONCE STAT NEB 12/23/16 06:53 12/23/16 06:54 DC Ipratropium [place] (Atrovent 0.02% (Neb)) 0.5 mg ONCE STAT NEB 12/23/16 06:53 12/23/16 06:54 DC Methylprednisolone Sodium Succinate (Solu-Medrol) 125 mg ONCE STAT IV 12/23/16 06:53 12/23/16 06:54 DC Procedures/MDM EKG: Rate/Rhythm: [Normal Sinus Rhythm] QRS, ST, T-waves: [No changes consistent w/ acute ischemia] Impression: [No evidence of ischemia or arrhythmia] Chest X-ray 1V Interpreted by me: Soft Tissue: No acute abnormalities Bones: No acute abnormalities Mediastinum/Cardiac Silhouette/Lungs: [No acute abnormalities] This 51-year-old female presents to the emergency room for evaluation of mild chest discomfort and shortness of breath. When I evaluated this patient she was not hypoxic, however she stated that she felt like she needed a breathing treatment. The patient was given a breathing treatment. She was given Solu- Medrol, and lab work was obtained including a troponin which is negative. This patient's EKG is nonischemic. The patient's chest x-ray is also clear. She has no signs of respiratory distress and no signs of hemodynamic compromise. My suspicion for pulmonary embolism is low at this time. This patient does state she feels better after breathing treatment will be discharged home with a prescription for prednisone to take over the course of the next 4 days. Departure Diagnosis: Primary Impression: Chest pain Additional Impression: Acute asthma exacerbation Condition: Stable HANS REES DO Dec 23, 2016 06:58
[2016-12-23] MEDS ORDERED: PRED20TA PO (06:59)
[2016-12-23 08:14] VITALS: BP 122/69; PULSE 72; RESP 15
== END 2016-12-23 08:20 | disposition home or self-care (01) ==
LOC: E/R 04:28
DX: R07.9 Chest pain, unspecified (principal); J45.901 Unspecified asthma with (acute) exacerbation; R06.02 Shortness of breath
CPT/HCPCS: 36415; 71010; 80048; 84484; 85025; 85610; 85730; 93005; 94644; 96374; J2930; Z7502; Z7610

== ENCOUNTER 2017-05-07 22:22 | Emergency (ER) | payer OTHER ==
[~2017-05-07] VITALS: Ht 154.9 cm; Wt 69.5 kg
[~2017-05-07 22:22] MED LIST changes: +ALBU18HF INHALATION; -CLON2TAB3 PO; -FAMO40TA52 PO; -HYDR-906 PO; -IBUP-1542 PO; -IBUP400T22 PO; +LEVO25TA53 PO; -NAPR-260 PO; -OMEP20CA16 PO; +PRED20TA PO; +TOPI-25 PO; -TOPI50TA5 PO; -TRAM50TA2 PO
[2017-05-07 23:24] VITALS: Ht 154.9 cm; Wt 69.5 kg
[2017-05-08] MEDS ORDERED: KETOROLAC 30 MG INJ IV STA (02:44)
[2017-05-08] MEDS ORDERED: SOD CHLORIDE 0.9% 1,000 ML IV STA (02:44)
[2017-05-08] MEDS ORDERED: ONDANSETRON 4 MG INJ IV STA (02:44)
[2017-05-08 03:13] LABS: BASOPHILS % 0.8 % (0.0-2.0); EOSINOPHILS # 0.2 10^3/ul (0.0-0.5); EOSINOPHILS % 4.6 % (0.0-7.0); HEMATOCRIT 36.5 % (37.0-47.0); HEMOGLOBIN 12.3 g/dl (12.0-16.0); LYMPHOCYTES # 2.1 10^3/ul (0.8-2.9); MEAN CORPUSCULAR HEMOGLOBIN 31.1 pg (29.0-33.0); MEAN CORPUSCULAR HGB CONC 33.7 g/dl (32.0-37.0); MEAN CORPUSCULAR VOLUME 92.4 fl (82.0-101.0); MEAN PLATELET VOLUME 10.1 fl (7.4-10.4); MONOCYTE # 0.4 10^3/ul (0.3-0.9); MONOCYTES % 7.3 % (0.0-11.0); NEUTROPHIL # 2.1 10^3/ul (1.6-7.5); NEUTROPHILS % 44.1 % (39.0-77.0); PLATELET COUNT 282 10^3/UL (140-415); RED BLOOD COUNT 3.95 10^6/ul (4.20-5.40); RED CELL DISTRIBUTION WIDTH 13.3 % (11.5-14.5); WHITE BLOOD COUNT 4.8 10^3/ul (4.8-10.8)
[2017-05-08 03:18] LABS: ADD UMIC YES; UR ASCORBIC ACID NEGATIVE (NEGATIVE); UR BILIRUBIN (Dip) NEGATIVE (NEGATIVE); UR BLOOD (Dip) 1+ mg/dL (NEGATIVE); UR CLARITY CLEAR (CLEAR); UR COLOR COLORLESS (YELLOW); UR GLUCOSE (Dip) NEGATIVE (NEGATIVE); UR KETONES (Dip) NEGATIVE (NEGATIVE); UR LEUKOCYTE ESTERASE (Dip) NEGATIVE Leu/ul (NEGATIVE); UR NITRITE (Dip) NEGATIVE (NEGATIVE); UR RBC 1 /HPF (0-5); UR SPECIFIC GRAVITY (Dip) 1.006 (1.003-1.030); UR TOTAL PROTEIN (Dip) NEGATIVE (NEGATIVE); UR UROBILINOGEN (Dip) NEGATIVE (NEGATIVE)
[2017-05-08 03:45] LABS: ALBUMIN 4.7 g/dl (3.3-4.9); ALBUMIN/GLOBULIN RATIO 1.67; BILIRUBIN,INDIRECT 0.1 mg/dl (0-1.1); BILIRUBIN,TOTAL 0.1 mg/dl (0.2-1.3); CALCIUM 9.6 mg/dl (8.4-10.2); CREATININE 0.76 mg/dl (0.44-1.00); POTASSIUM 4.1 mmol/L (3.5-5.1); TOTAL PROTEIN 7.5 g/dl (6.1-8.1)
--- NOTE | 2017-05-08 04:27 | ERD ---
ER Documentation Chief Complaint Date/Time DATE: 05/08/17 TIME: 04:27 Chief Complaint abd pain and body pain with n/v x 2 days HPI 51-year-old female with a history of arthritis presenting with generalized body aches. She has had her symptoms for about 1 week. She also complains of intermittent cramping abdominal pain, mostly within her lower abdomen, 5 out of 10. She denies any associated fever, chills, dysuria, nausea, vomiting, diarrhea, or constipation. No melena or hematochezia. She saw her primary care doctor sometime last week for the symptoms but no tests were done. ROS All systems reviewed and are negative except as per history of present illness. Medications Home Meds Active Scripts Ibuprofen* (Motrin*) 600 Mg Tab, 600 MG PO Q6H Y for PAIN AND OR ELEVATED TEMP, #30 TAB Prov:JIMENA HOLLOWAY MD 05/08/17 Prednisone* (Prednisone*) 20 Mg Tab, 40 MG PO DAILY for 4 Days, TAB Prov:HANS REES DO 12/23/16 Lorazepam* (Lorazepam*) 1 Mg Tablet, 1 MG PO Q8H Y for ANXIETY, #10 TAB Prov:KRYSTYNA BOOTH 10/09/16 Reported Medications Levothyroxine Sodium* (Levothyroxine Sodium*) 25 Mcg Tablet, 25 MCG PO BEFORE BREAKFAST, #30 TAB 12/23/16 Albuterol Sulfate* (Ventolin HFA*) 18 Gm Hfa.aer.ad, 2 PUFF INHALATION Q4H, #1 INHALER 12/23/16 Topiramate* (Topiramate*) 100 Mg Tablet, 100 MG PO DAILY, TAB 12/23/16 Gabapentin* (Gabapentin*) 300 Mg Capsule, 300 MG PO DAILY, #60 CAP 12/23/16 Fluoxetine Hcl* (Fluoxetine Hcl*) 10 Mg Capsule, 10 MG PO DAILY, CAP 09/30/15 Atenolol* (Atenolol*) 50 Mg Tablet, 50 MG PO DAILY, #30 TAB 09/30/15 Allergies Allergies: Coded Allergies: No Known Allergy (Unverified , 12/23/16) PMhx/Soc History of Surgery: Yes (cranial surgery for aneurysm repair) Anesthesia Reaction: No Hx Neurological Disorder: No Hx Respiratory Disorders: Yes (asthma) Hx Psychiatric Problems: No Hx Miscellaneous Medical Probl: Yes (hypothyroid) Hx Alcohol Use: No Hx Substance Use: No Hx Tobacco Use: No Smoking Status: Unknown if ever smoked FmHx Family History: No diabetes Physical Exam Vitals Vital Signs Date Time Temp Pulse Resp B/P Pulse Ox O2 Delivery O2 Flow Rate FiO2 05/08/17 02:05 71 16 132/108 99 Room Air 05/07/17 23:24 97.2 78 18 154/82 98 Physical Exam Const: Well-appearing, no apparent distress, nontoxic Head: Atraumatic Eyes: Normal Conjunctiva, PERRLA, EOMI ENT: Normal External Ears, Nose and Mouth.Posterior oropharynx normal Neck: Full range of motion..~ No meningismus.No JVD Resp: Clear to auscultation bilaterally Cardio: Regular rate and rhythm, no murmurs Abd: Soft, non tender, non distended. Normal bowel sounds Skin: No petechiae or rashes Back: No midline or flank tenderness Ext: No cyanosis, or edema. Normal range of motion in all joints with no joint effusions or erythema overlying joints. Neur: Awake and alert Psych: Normal Mood and Affect Result Diagram: 05/08/17 0303 05/08/17 0303 Results 24 hrs Laboratory Tests Test 05/08/17 03:03 White Blood Count 4.810^3/ul Red Blood Count 3.9510^6/ul Hemoglobin 12.3g/dl Hematocrit 36.5% Mean Corpuscular Volume 92.4fl Mean Corpuscular Hemoglobin 31.1pg Mean Corpuscular Hemoglobin Concent 33.7g/dl Red Cell Distribution Width 13.3% Platelet Count 38501^3/UL Mean Platelet Volume 10.1fl Neutrophils % 44.1% Lymphocytes % 43.0% Monocytes % 7.3% Eosinophils % 4.6% Basophils % 0.8% Nucleated Red Blood Cells % 0.0/100WBC Neutrophils # 2.110^3/ul Lymphocytes # 2.110^3/ul Monocytes # 0.410^3/ul Eosinophils # 0.210^3/ul Basophils # 0.010^3/ul Nucleated Red Blood Cells # 0.010^3/ul Urine Color COLORLESS Urine Clarity CLEAR Urine pH 7.0 Urine Specific [place] 1.006 Urine Ketones NEGATIVEmg/dL Urine Nitrite NEGATIVEmg/dL Urine Bilirubin NEGATIVEmg/dL Urine Urobilinogen NEGATIVEmg/dL Urine Leukocyte Esterase NEGATIVELeu/ul Urine Microscopic RBC 1/HPF Urine Microscopic WBC 0/HPF Urine Hemoglobin 1+mg/dL Urine Glucose NEGATIVEmg/dL Urine Total Protein NEGATIVEmg/dl Sodium Level 143mmol/L Potassium Level 4.1mmol/L Chloride Level 103mmol/L Carbon Dioxide Level 30mmol/L Anion Gap 14 Blood Urea Nitrogen 16mg/dl Creatinine 0.76mg/dl Glucose Level 91mg/dl Calcium Level 9.6mg/dl Total Bilirubin 0.1mg/dl Direct Bilirubin 0.00mg/dl Indirect Bilirubin 0.1mg/dl Aspartate Amino Transf (AST/SGOT) 42IU/L Alanine Aminotransferase (ALT/SGPT) 49IU/L Alkaline Phosphatase 70IU/L Total Protein 7.5g/dl Albumin 4.7g/dl Globulin 2.80g/dl Albumin/Globulin Ratio 1.67 Lipase 66U/L Current Medications Medications (Trade) Dose Ordered Sig/Larry Route PRN Reason Start Time Stop Time Status Last Admin Dose Admin Sodium Chloride (NS) 1,000 ml @ 1,000 mls/hr Q1H STAT IV 05/08/17 02:44 05/08/17 03:43 DC 05/08/17 03:16 Ondansetron HCl (Zofran Inj) 4 mg ONCE STAT IV 05/08/17 02:44 05/08/17 02:45 DC 05/08/17 03:16 Ketorolac Tromethamine (Toradol) 30 mg ONCE STAT IV 05/08/17 02:44 05/08/17 02:45 DC 05/08/17 03:16 Lorazepam (Ativan) 1 mg ONCE ONCE PO 05/08/17 04:30 05/08/17 04:31 DC 05/08/17 04:31 Procedures/MDM Labs CBC: no anemia or evidence of infection CMP: No evidence of electrolyte abnormality, renal failure, hypoglycemia, liver failure, or biliary obstruction Lipase: no evidence of pancreatitis UA: no evidence of infection, 1+ hemoglobin MDM Patient is presenting with generalized nonspecific symptoms of body aches and lower abdominal pain. Her vitals are unremarkable and she is afebrile and nontoxic on exam. She was given IV fluids and Toradol for her pain. Her labs did not show any significant abnormalities. There is no evidence of sepsis or acute surgical abdomen. There is no evidence of septic joint or cellulitis. Patient's pain is likely secondary to her arthritis. There is no evidence of a medical emergency at this time. Patient will be discharged with instructions to follow-up with her primary care doctor. If her symptoms worsen, she is instructed to return to the ER. Departure Diagnosis: Primary Impression: Body aches Additional Impression: Joint pain Joint pain location: unspecified Qualified Code: M25.50 - Arthralgia, unspecified joint Condition: Fair JIMENA HOLLOWAY MD May 08, 2017 04:27
[2017-05-08] MEDS ORDERED: IBUP-1542 PO (04:29)
[2017-05-08] MEDS ORDERED: LORAZEPAM 1 MG TAB PO ONE (04:30)
[2017-05-08 04:40] VITALS: BP 149/102; PULSE 67; RESP 17; TEMP 98.2
== END 2017-05-08 04:45 | disposition home or self-care (01) ==
LOC: E/R 22:22
DX: M25.50 Pain in unspecified joint (principal); E03.9 Hypothyroidism, unspecified; J45.909 Unspecified asthma, uncomplicated
CPT/HCPCS: 36415; 80053; 81001; 83690; 85025; 96374; 96375; 99284; J1885; J2405; J7030

== ENCOUNTER 2017-06-07 16:12 | Emergency (ER) | payer OTHER ==
[~2017-06-07] VITALS: Ht 157.5 cm; Wt 65.8 kg
[~2017-06-07 16:12] MED LIST changes: +IBUP-1542 PO
[2017-06-07 16:15] VITALS: Ht 157.5 cm; Wt 65.8 kg
[2017-06-07] MEDS ORDERED: ACETAMINOPHEN 325 MG TAB PO STA (17:07)
[2017-06-07] MEDS ORDERED: PROCHLORPERAZINE 10 MG INJ IV STA (17:07)
[2017-06-07] MEDS ORDERED: SOD CHLORIDE 0.9% 500 ML IV STA (17:07)
[2017-06-07] MEDS ORDERED: DIPHENHYDRAMINE 50 MG INJ IV STA (17:07)
--- NOTE | 2017-06-07 17:33 | ERD ---
ER Documentation Chief Complaint Chief Complaint BIB SELF C/O HEADACHE AND BONE PAIN X 2 DAYS WITH NAUSEA HX BRAIN ANEURYSM HPI This is a 52-year-old female with a past medical history of COPD/asthma, hypertension, thyroidism, frequent headaches on Topamax, previous brain aneurysm status post craniotomy and clipping, anxiety, depression who is now presenting with a headache, nausea, severe anxiety and generalized body aches and pains for approximately 3-4 days. The patient states that she takes ibuprofen at home in addition to her anxiety medicine, but it does not do anything. She feels extremely anxious and wants anxiety medicine. She is also demanding morphine. Given her history, I discussed with her the need to perform a CT scan of her head and then possibly perform a lumbar puncture if her CT scan is negative. After describing the lumbar puncture, the patient actually changed her story and stated that it is not actually her headache that is the problem today. She just feels very anxious and feels that her body aches all over. The patient does report getting her flu shot in March of this year. The patient has had no vision changes. The patient does not endorse neck or back pain. The patient denies lightheadedness or dizziness. The patient has had no chest pain or shortness of breath or trouble breathing. The patient denies vomiting. The patient denies abdominal pain or changes to bowel movements or urination. The patient has had no focal deficits. The patient has had no new weakness or numbness or tingling to the face or extremities. The patient has mild chronic right-sided strength and sensory deficits that have been unchanged since her surgery. ROS All systems reviewed and are negative except as per history of present illness. Medications Home Meds Active Scripts Ibuprofen* (Motrin*) 600 Mg Tab, 600 MG PO Q6H Y for PAIN AND OR ELEVATED TEMP, #30 TAB Prov:JIMENA HOLLOWAY MD 05/08/17 Prednisone* (Prednisone*) 20 Mg Tab, 40 MG PO DAILY for 4 Days, TAB Prov:HANS REES DO 12/23/16 Lorazepam* (Lorazepam*) 1 Mg Tablet, 1 MG PO Q8H Y for ANXIETY, #10 TAB Prov:KRYSTYNA BOOTH 10/09/16 Reported Medications Levothyroxine Sodium* (Levothyroxine Sodium*) 25 Mcg Tablet, 25 MCG PO BEFORE BREAKFAST, #30 TAB 12/23/16 Albuterol Sulfate* (Ventolin HFA*) 18 Gm Hfa.aer.ad, 2 PUFF INHALATION Q4H, #1 INHALER 12/23/16 Topiramate* (Topiramate*) 100 Mg Tablet, 100 MG PO DAILY, TAB 12/23/16 Gabapentin* (Gabapentin*) 300 Mg Capsule, 300 MG PO DAILY, #60 CAP 12/23/16 Fluoxetine Hcl* (Fluoxetine Hcl*) 10 Mg Capsule, 10 MG PO DAILY, CAP 09/30/15 Atenolol* (Atenolol*) 50 Mg Tablet, 50 MG PO DAILY, #30 TAB 09/30/15 Allergies Allergies: Coded Allergies: No Known Allergy (Unverified , 12/23/16) PMhx/Soc History of Surgery: Yes (cranial surgery for aneurysm repair) Anesthesia Reaction: No Hx Neurological Disorder: No Hx Respiratory Disorders: Yes (asthma) Hx Psychiatric Problems: No Hx Miscellaneous Medical Probl: Yes (hypothyroid) Hx Alcohol Use: No Hx Substance Use: No Hx Tobacco Use: No Smoking Status: Never smoker Physical Exam Vitals Vital Signs Date Time Temp Pulse Resp B/P Pulse Ox O2 Delivery O2 Flow Rate FiO2 06/07/17 19:10 70 22 141/71 98 Room Air 06/07/17 16:15 97.0 93 18 115/69 98 Physical Exam Const: No apparent distress, well-developed, well-nourished Head: Normocephalic, Atraumatic Eyes: Normal Conjunctiva. Extraocular movements intact. Pupils equal, round and reactive to light ENT: Normal External Ears, Nose and Mouth. Neck: Full range of motion. No meningismus. Resp: Clear to auscultation bilaterally, No wheezes, rales or rhonchi Cardio: Regular rate and rhythm. No murmurs, rubs or gallops Abd: Soft, non tender, non distended. Normal bowel sounds Skin: No petechiae or rashes Back: No midline tenderness. No CVA tenderness Ext: No cyanosis, or edema Neur: Awake and alert, oriented 4. Cranial nerves intact, aside from decreased but intact sensation to the right side of the face. No facial droop. 4+ out of 5 strength and sensation to the right arm and leg. 5 out of 5 strength and normal sensation to the left arm and leg. Normal coordination. Psych: Significant anxiety Result Diagram: 06/07/17 1730 06/07/17 1730 Results 24 hrs Laboratory Tests Test 06/07/17 17:20 06/07/17 17:30 Prothrombin Time 12.8Sec Prothrombin Time Ratio 1.0 INR International Normalized Ratio 0.96 Activated Partial Thromboplast Time 35.1Sec White Blood Count 5.710^3/ul Red Blood Count 4.4110^6/ul Hemoglobin 13.2g/dl Hematocrit 39.9% Mean Corpuscular Volume 90.5fl Mean Corpuscular Hemoglobin 29.9pg Mean Corpuscular Hemoglobin Concent 33.1g/dl Red Cell Distribution Width 12.7% Platelet Count 88774^3/UL Mean Platelet Volume 11.0fl Neutrophils % 73.8% Lymphocytes % 19.0% Monocytes % 4.9% Eosinophils % 1.4% Basophils % 0.5% Nucleated Red Blood Cells % 0.0/100WBC Neutrophils # 4.210^3/ul Lymphocytes # 1.110^3/ul Monocytes # 0.310^3/ul Eosinophils # 0.110^3/ul Basophils # 0.010^3/ul Nucleated Red Blood Cells # 0.010^3/ul Sodium Level 147mmol/L Potassium Level 4.3mmol/L Chloride Level 105mmol/L Carbon Dioxide Level 30mmol/L Anion Gap 16 Blood Urea Nitrogen 12mg/dl Creatinine 0.92mg/dl Glucose Level 105mg/dl Calcium Level 10.1mg/dl Current Medications Medications (Trade) Dose Ordered Sig/Larry Route PRN Reason Start Time Stop Time Status Last Admin Dose Admin Sodium Chloride (NS) 500 ml @ 500 mls/hr Q1H STAT IV 06/07/17 17:07 06/07/17 18:06 DC 06/07/17 18:00 Acetaminophen (Tylenol Tab) 650 mg ONCE STAT PO 06/07/17 17:07 06/07/17 17:10 DC 06/07/17 18:01 Prochlorperazine (Compazine Inj) 10 mg ONCE STAT IV 06/07/17 17:07 06/07/17 17:10 DC 06/07/17 18:01 Diphenhydramine HCl (Benadryl) 25 mg ONCE STAT IV 06/07/17 17:07 06/07/17 17:10 DC 06/07/17 18:01 Fentanyl (Sublimaze) 25 mcg ONCE ONCE IV 06/07/17 19:00 06/07/17 19:00 DC Lorazepam (Ativan) 0.5 mg ONCE ONCE IV 06/07/17 19:00 06/07/17 19:01 DC 06/07/17 18:57 Lorazepam (Ativan) 0.5 mg ONCE ONCE IV 06/07/17 19:30 06/07/17 19:31 DC 06/07/17 19:12 Procedures/[facility] MDM The patient's presentation warrants further investigation. I will obtain a CT scan to evaluate for any signs of subarachnoid hemorrhage or other intracranial hemorrhage. The risks and benefits of a lumbar puncture were discussed with the patient and she declined this intervention. The patient will be given Compazine and and Benadryl in addition to IV fluids. The patient also received Ativan in the emergency department for her anxiety. The patient has been changing her story. I have less suspicion for subarachnoid hemorrhage. The patient does appear quite anxious and it will provide her Ativan in the ER. However, at this time I do not feel that narcotic medications are appropriate. LABS The patient's blood work was obtained and reviewed. The patient's CBC shows no leukocytosis and no left shift. The patient is afebrile and does not appear systemically ill. I do not suspect a systemic infection. The patient is not anemic today. The patient's platelet count is unremarkable. The patient's BMP shows no signs of metabolic or electrolyte emergencies. The patient has unremarkable renal function testing. Coags are unremarkable. IMAGING CT Head No significant change identified since 10/09/2016. Right frontal-temporal craniotomy changes with aneurysm surgical clip at the right supraclinoid ICA region. Chronic areas of right cerebral and right cerebellar encephalomalacia. No acute hemorrhage or significant mass effect. Electronically viewed and signed by .Juan Ramon Panda MD, on 06/07/2017 18:00 TREATMENT/DISPOSITION The patient's overall presentation is reassuring. I have low suspicion for a subarachnoid hemorrhage, but a lumbar puncture was offered. After the risks and benefits were discussed, the patient declined. She did then report that the muscle aches and pains were her primary concern. It is possible that the patient has a viral syndrome associated with her aches and pains, but she does not have any other symptoms of a viral syndrome. The patient is extremely anxious. Her anxiety did improve with the Ativan. Her headache also improved with the migraine medications. At this time, I feel that the patient stable for discharge. The patient will need follow-up with his primary care physician in 2-3 days. The patient will be given strict precautions with which to return to the emergency department. The patient's blood pressure was elevated at greater than 120/80 while in the emergency department. The patient was otherwise stable with no evidence of hypertensive urgency or emergency. The patient will require reevaluation of his blood pressure in 2-3 days, but this may be completed by a primary care physician as an outpatient. He does not require admission for blood pressure control. Departure Diagnosis: Primary Impression: Headache Headache type: unspecified Headache chronicity pattern: chronic headache Intractability: not intractable Qualified Code: R51 - Chronic nonintractable headache, unspecified headache type Additional Impressions: Myalgia Anxiety Condition: Stable JAKE NOLASCO MD Jun 07, 2017 17:33
[2017-06-07 17:45] LABS: BASOPHILS % 0.5 % (0.0-2.0); EOSINOPHILS # 0.1 10^3/ul (0.0-0.5); EOSINOPHILS % 1.4 % (0.0-7.0); HEMATOCRIT 39.9 % (37.0-47.0); HEMOGLOBIN 13.2 g/dl (12.0-16.0); LYMPHOCYTES # 1.1 10^3/ul (0.8-2.9); MEAN CORPUSCULAR HEMOGLOBIN 29.9 pg (29.0-33.0); MEAN CORPUSCULAR HGB CONC 33.1 g/dl (32.0-37.0); MEAN CORPUSCULAR VOLUME 90.5 fl (82.0-101.0); MONOCYTE # 0.3 10^3/ul (0.3-0.9); MONOCYTES % 4.9 % (0.0-11.0); NEUTROPHIL # 4.2 10^3/ul (1.6-7.5); NEUTROPHILS % 73.8 % (39.0-77.0); PLATELET COUNT 252 10^3/UL (140-415); RED BLOOD COUNT 4.41 10^6/ul (4.20-5.40); RED CELL DISTRIBUTION WIDTH 12.7 % (11.5-14.5); WHITE BLOOD COUNT 5.7 10^3/ul (4.8-10.8)
[2017-06-07 17:58] LABS: INR 0.96; PROTIME 12.8 Sec (12.2-14.2)
[2017-06-07 17:59] LABS: PARTIAL THROMBOPLASTIN TIME 35.1 Sec (25.0-35.0)
--- NOTE | 2017-06-07 18:00 | RADRPT ---
PROCEDURE: CT Brain without contrast. CLINICAL INDICATION: Headaches. TECHNIQUE: A CT of the brain was performed on multidetector high-resolution CT scanner utilizing a xial sections from the skull base through the vertex without contrast. One or more of the following dose reduction techniques were used: Automated exposure control, Adjustment of the mA and/or kV acc ording to patient size, and/or use of iterative reconstruction technique. DICOM images are available . DOSE: CTDI = 45 mGy and the DLP = 720 mGy-cm. COMPARISON: Head CT 10/09/2016 FINDINGS: Right frontal-temporal craniotomy changes with aneurysm surgical clip at the right supraclinoid ICA region. Chronic cortical areas of right frontal lobe, right insula, right inferior and posterior tem poral lobes. Additional chronic encephalomalacia right cerebellum. No acute intracranial hemorrhage, significant mass effect or midline shift. The ventricles are stable size. No significant opacification of the visualized paranasal sinuses or mastoids. IMPRESSION: No significant change identified since 10/09/2016. Right frontal-temporal craniotomy changes with aneurysm surgical clip at the right supraclinoid ICA region. Chronic areas of right cerebral and right cerebellar encephalomalacia. No acute hemorrhage or significant mass effect. RPTAT: AA .Juan Ramon Panda MD, Date Time Electronically viewed and signed by .Juan Ramon Panda MD, on 06/07/2017 18:00 .T/
[2017-06-07 18:13] LABS: CALCIUM 10.1 mg/dl (8.4-10.2); CREATININE 0.92 mg/dl (0.44-1.00); POTASSIUM 4.3 mmol/L (3.5-5.1)
[2017-06-07] MEDS ORDERED: FENTAnyl 50 MCG/ML VIAL IV ONE (19:00)
[2017-06-07] MEDS ORDERED: LORAZEPAM 2 MG INJ IV ONE ×2 (19:00→19:30)
[2017-06-07 19:58] VITALS: BP 141/90; PULSE 8; RESP 20
== END 2017-06-07 19:59 | disposition home or self-care (01) ==
LOC: E/R 16:12
DX: R51 Headache (principal); M79.1 Myalgia; F41.9 Anxiety disorder, unspecified; E03.9 Hypothyroidism, unspecified; J44.9 Chronic obstructive pulmonary disease, unspecified; I10 Essential (primary) hypertension; R06.02 Shortness of breath; R40.2142 Coma scale, eyes open, spontaneous, at arrival to emergency department; R40.2252 Coma scale, best verbal response, oriented, at arrival to emergency department; R40.2362 Coma scale, best motor response, obeys commands, at arrival to emergency department
CPT/HCPCS: 36415; 70450; 80048; 85025; 85610; 85730; 96374; 96375; 99285; J0780; J1200; J2060; J7040

== ENCOUNTER 2017-07-21 12:59 | Emergency (ER) | END 2017-07-21 18:24 | disposition home or self-care (01) ==

== ENCOUNTER 2017-10-18 02:34 | Emergency (ER) | END 2017-10-18 06:18 | disposition home or self-care (01) ==

== ENCOUNTER 2017-11-22 15:18 | Emergency (ER) | END 2017-11-22 19:37 | disposition home or self-care (01) ==